=== PATIENT | male | born 1945 | race Two or more races ===

== ENCOUNTER 2019-10-29 16:45 | Emergency (ER) | payer OTHER ==
[~2019-10-29] VITALS: Ht 165.1 cm; Wt 81.2 kg
[2019-10-29] MEDS ORDERED: AVAPRO150 MG (17:35)
== END 2019-10-30 13:58 | disposition home or self-care (01) ==
LOC: ER 16:45
DX: K62.5 Hemorrhage of anus and rectum (principal); Z98.890 Other specified postprocedural states

== ENCOUNTER 2019-10-30 09:53 | Emergency (ER) | payer OTHER ==
[~2019-10-30] VITALS: Ht 165.1 cm; Wt 81.2 kg
[~2019-10-30 09:53] MED LIST: AVAPRO150 MG
== END 2019-10-30 14:15 | disposition home or self-care (01) ==
LOC: ER 09:53
DX: K62.5 Hemorrhage of anus and rectum (principal)

== ENCOUNTER 2019-12-28 08:44 | Outpatient (CLI) | payer OTHER | END 2019-12-28 08:50 | disposition home or self-care (01) | LOC: LAB 08:44 | DX: N30.00 Acute cystitis without hematuria (principal); R31.1 Benign essential microscopic hematuria ==

== ENCOUNTER 2019-12-29 08:38 | Outpatient (CLI) | payer OTHER | END 2019-12-29 08:40 | disposition home or self-care (01) | LOC: TOM 08:38 | DX: C61 Malignant neoplasm of prostate (principal); R31.1 Benign essential microscopic hematuria | CPT/HCPCS: 74178; Q9965 ==

== ENCOUNTER 2020-01-03 07:15 | Outpatient (CLI) | payer OTHER | END 2020-01-03 07:35 | disposition home or self-care (01) | LOC: NUCLEAR 07:15 | DX: C61 Malignant neoplasm of prostate (principal); R31.1 Benign essential microscopic hematuria | CPT/HCPCS: 78803; A9503 ==

== ENCOUNTER 2020-02-11 07:10 | Outpatient (CLI) | payer OTHER | END 2020-02-11 07:24 | disposition home or self-care (01) | LOC: NUCLEAR 07:10 | DX: R07.89 Other chest pain (principal); I65.23 Occlusion and stenosis of bilateral carotid arteries | CPT/HCPCS: 78452; 93017; 93880; A9500 ==

== ENCOUNTER 2020-04-18 11:00 | Inpatient (IN) | payer OTHER ==
[~2020-04-18] VITALS: Ht 167.6 cm; Wt 81.6 kg
[2020-04-18] MEDS ORDERED: HYDROCHLOROTHIA25 MG PO (11:57)
[2020-04-18] MEDS ORDERED: IBERSARTAN PO (11:57)
[2020-04-18] MEDS ORDERED: AMLOD PO (11:58)
[2020-04-18] MEDS ORDERED: ATORVASTATIN CA20 MG PO (11:59)
[2020-04-18] MEDS ORDERED: IRBESARTAN-HCT1 EAC1 PO (11:59)
[2020-04-18] MEDS ORDERED: ECOTRIN81 MG PO (12:00)
[2020-04-24] MEDS ORDERED: NORVASC5 MG PO (08:39)
== END 2020-04-28 12:55 | disposition home or self-care (01) | DRG 707 ==
LOC: SURG 04-21 06:00 → O/R 04-21 06:00 → SURH 04-21 07:00 → O/R 04-21 11:00 → SURG 04-21 12:09
PROVIDERS: ADMIT Urology; ATTEND Urology
PROC: 07BC0ZX Excision of Pelvis Lymphatic, Open Approach, Diagnostic (ICD-10-PCS; 2020-04-21)
PROC: 0VT00ZZ Resection of Prostate, Open Approach (ICD-10-PCS; principal; 2020-04-21 07:00)
PROC: 30233N1 Transfusion of Nonautologous Red Blood Cells into Peripheral Vein, Percutaneous Approach (ICD-10-PCS; 2020-04-22)
PROC: 0WCJ0ZZ Extirpation of Matter from Pelvic Cavity, Open Approach (ICD-10-PCS; 2020-04-24)
PROC: BW21ZZZ Computerized Tomography (CT Scan) of Abdomen and Pelvis (ICD-10-PCS; 2020-04-24)
DX: C61 Malignant neoplasm of prostate (principal); D62 Acute posthemorrhagic anemia; N99.821 Postprocedural hemorrhage of a genitourinary system organ or structure following other procedure; R97.21 Rising PSA following treatment for malignant neoplasm of prostate

== ENCOUNTER 2020-05-12 08:19 | Outpatient (CLI) | payer OTHER | END 2020-05-12 08:29 | disposition home or self-care (01) | LOC: TOM 08:19 | PROVIDERS: ATTEND Urology | DX: C61 Malignant neoplasm of prostate (principal); R31.29 Other microscopic hematuria ==

== ENCOUNTER → 2020-05-12 | Emergency (ER) | payer OTHER ==
[~2020-05-12] VITALS: Ht 165.1 cm; Wt 81.6 kg
[~2020-05-12] MED LIST changes: +AMLOD PO; +ATORVASTATIN CA20 MG PO; +ECOTRIN81 MG PO; +HYDROCHLOROTHIA25 MG PO; +IBERSARTAN PO; +IRBESARTAN-HCT1 EAC1 PO; +NORVASC5 MG PO
== END | disposition left against medical advice (07) ==
LOC: ER 08:34
DX: Z53.20 Procedure and treatment not carried out because of patient's decision for unspecified reasons (principal)

== ENCOUNTER 2020-05-25 09:13 | Outpatient (CLI) | payer OTHER | END 2020-05-25 09:28 | disposition home or self-care (01) | LOC: TOM 09:13 | PROVIDERS: ATTEND Urology | DX: C61 Malignant neoplasm of prostate (principal); R31.1 Benign essential microscopic hematuria ==

== ENCOUNTER → 2020-05-26 17:03 | Outpatient (CLI) | payer OTHER | END | disposition home or self-care (01) | LOC: LAB 17:03 | PROVIDERS: ATTEND Urology | DX: N30.00 Acute cystitis without hematuria (principal); B99.8 Other infectious disease ==

== ENCOUNTER 2020-09-19 08:46 | Outpatient (CLI) | payer OTHER | END 2020-09-19 15:00 | disposition home or self-care (01) | LOC: LAB 08:46 | PROVIDERS: ATTEND Urology | DX: Z20.828 Contact with and (suspected) exposure to other viral communicable diseases (principal) ==

== ENCOUNTER 2020-09-22 06:45 | Day surgery (SDC) | payer OTHER | END 2020-09-22 13:05 | disposition home or self-care (01) | LOC: CIR.AMB 06:45 | PROVIDERS: ATTEND Urology | DX: N35.816 Other urethral stricture, male, overlapping sites (principal); Z20.828 Contact with and (suspected) exposure to other viral communicable diseases ==